=== PATIENT | female | born 1990 | race American Indian/Alaskan Native ===

== ENCOUNTER 2024-02-19 23:51 | Emergency (ER) | payer MEDICARE, MEDICAID ==
[~2024-02-19] VITALS: Ht 177.8 cm; Wt 124.4 kg
[2024-02-20 01:27] VITALS: BP 148/99; PULSE 116; RESP 14; TEMP 98.1; O2SAT 99
== END 2024-02-20 01:32 | disposition home or self-care (01) ==
LOC: ER 23:53
DX: M79.671 Pain in right foot (principal)
CPT/HCPCS: 73630; 99284

== ENCOUNTER 2024-03-27 23:43 | Emergency (ER) | payer MEDICARE, MEDICAID ==
[~2024-03-27] VITALS: Ht 177.8 cm; Wt 121.6 kg
[2024-03-28 00:05] VITALS: BP 134/80; PULSE 110; RESP 18; TEMP 98; O2SAT 100
[2024-03-28 00:22] LABS: URINE HCG NEGATIVE (NEG)
[2024-03-28 00:39] LABS: BILIRUBIN,URINE NEGATIVE (Neg); CLARITY,URINE CLOUDY (Clear); COLOR,URINE YELLOW (Yellow); GLUCOSE, URINE >=1000 mg/dl (Neg); KETONES,URINE TRACE mg/dl (Neg); LEUKOCYTE ESTERASE ,URINE NEGATIVE (Neg); NITRITES, URINE NEGATIVE (Neg); OCCULT BLOOD,URINE NEGATIVE (Neg); PROTEIN,URINE NEGATIVE (Neg); UROBILINOGEN,URINE 0.2 E.U/dL (0.2-1.0)
[2024-03-28 00:40] LABS: UA COLLECTION TYPE CLN CATCH MIDSTREAM
[2024-03-28 00:41] LABS: BACTERIA,URINE 4+ /HPF (Neg); RBC,URINE NONE SEEN /HPF (0-2); SQUAMOUS EPITHELIAL CELL,UR FEW /LPF (FEW); WBC,URINE 20-30 /HPF (0-4)
[2024-03-28 01:21] LABS: BASOPHILS # (AUTO) 0.1 X10'3 (0-0.2); BASOPHILS % (AUTO) 0.5 % (0-1); EOSINOPHILS # (AUTO) 0.1 X10'3 (0-0.9); EOSINOPHILS % (AUTO) 0.6 % (0-6); HEMATOCRIT 36.4 % (35.0-45.0); HEMOGLOBIN 11.9 g/dl (12.0-16.0); LYMPHOCYTES # (AUTO) 5.3 X10'3 (1.1-4.8); LYMPHOCYTES % (AUTO) 29.2 % (21-51); MEAN CORPUSCULAR HEMOGLOBIN 25.3 PG (27.0-31.0); MEAN CORPUSCULAR HGB CONC 32.6 g/dL (33.0-36.5); MEAN CORPUSCULAR VOLUME 77.5 FL (78-98); MEAN PLATELET VOLUME 7.5 FL (7.4-10.4); MONOCYTES # (AUTO) 0.9 X10'3 (0-0.9); MONOCYTES % (AUTO) 5.1 % (2-12); NEUTROPHILS # (AUTO) 11.8 X10'3 (1.8-7.7); NEUTROPHILS % (AUTO) 64.6 % (42-75); PLATELET COUNT 353 X10'3 (140-440); RED CELL DISTRIBUTION WIDTH 15.5 % (11.5-14.5); WHITE BLOOD COUNT 18.2 X10'3 (4.5-11.0)
[2024-03-28 01:36] LABS: ALANINE AMINOTRANSFERASE 23 U/L (12-78); ALBUMIN 3.6 G/DL (3.4-5.0); ALBUMIN/GLOBULIN RATIO 0.8 (1.1-1.5); ALKALINE PHOSPHATASE 114 IU/L (46-116); ANION GAP 6 (8-16); ASPARTATE AMINO TRANSFERASE 12 U/L (10-37); BILIRUBIN,TOTAL 0.2 MG/DL (0.1-1.0); BLOOD UREA NITROGEN 13 MG/DL (7-18); BUN/CREATININE RATIO 15.7 (10.0-20.0); CALCIUM 9.1 MG/DL (8.5-10.1); CHLORIDE 105 MMOL/L (99-107); CREATININE 0.83 MG/DL (0.40-0.90); GLUCOSE 172 MG/DL (70-104); SODIUM 139 MMOL/L (135-145); TOTAL CARBON DIOXIDE 27.8 MMOL/L (24-32); TOTAL PROTEIN 8.1 G/DL (6.4-8.2); eCRCL 102 ML/MIN; eGFR 78 ML/MIN
[2024-03-28] MEDS ORDERED: LEVO-65 PO (01:45)
[2024-03-28] MEDS: levoFLOXACIN 750MG TABLET PO ONE (01:49)
[2024-03-28] MEDS: CefTRIAXone 1000mg IM Kit (w/lidocaine diluent) IM ONE (01:49)
== END 2024-03-28 02:11 | disposition home or self-care (01) ==
LOC: ER 23:45
DX: N10 Acute pyelonephritis (principal)
CPT/HCPCS: 36415; 80053; 81001; 81025; 82948; 85025; 87088; 96372; 99283; J0696

== ENCOUNTER 2024-05-05 23:45 | Emergency (ER) | payer MEDICARE, MEDICAID ==
[~2024-05-05] VITALS: Ht 177.8 cm; Wt 92.2 kg
[2024-05-06 01:48] LABS: D-DIMER 0.45 MG/L FEU (0-0.50)
[2024-05-06] MEDS: dexamethasone sod phosphate 10mg/ml inj PO STA (02:12)
[2024-05-06 02:15] LABS: BASOPHILS # (AUTO) 0.1 X10'3 (0-0.2); BASOPHILS % (AUTO) 0.6 % (0-1); EOSINOPHILS # (AUTO) 0.2 X10'3 (0-0.9); HEMATOCRIT 37.2 % (35.0-45.0); HEMOGLOBIN 12.2 g/dl (12.0-16.0); LYMPHOCYTES # (AUTO) 2.8 X10'3 (1.1-4.8); LYMPHOCYTES % (AUTO) 34.5 % (21-51); MEAN CORPUSCULAR HEMOGLOBIN 25.5 PG (27.0-31.0); MEAN CORPUSCULAR HGB CONC 32.9 g/dL (33.0-36.5); MEAN CORPUSCULAR VOLUME 77.7 FL (78-98); MEAN PLATELET VOLUME 7.8 FL (7.4-10.4); MONOCYTES # (AUTO) 0.7 X10'3 (0-0.9); MONOCYTES % (AUTO) 8.2 % (2-12); NEUTROPHILS # (AUTO) 4.5 X10'3 (1.8-7.7); NEUTROPHILS % (AUTO) 54.7 % (42-75); PLATELET COUNT 300 X10'3 (140-440); RED BLOOD COUNT 4.79 X10'6 (4.20-5.60); RED CELL DISTRIBUTION WIDTH 16.5 % (11.5-14.5); WHITE BLOOD COUNT 8.2 X10'3 (4.5-11.0)
[2024-05-06] MEDS ORDERED: AZIT-164 PO (02:52)
[2024-05-06] MEDS ORDERED: ALBU18HF2 INH (02:52)
[2024-05-06] MEDS ORDERED: PRED20TA PO (02:52)
[2024-05-06 03:00] LABS: ALBUMIN 3.7 G/DL (3.4-5.0); ANION GAP 10 (8-16); BLOOD UREA NITROGEN 9 MG/DL (7-18); BUN/CREATININE RATIO 12.9 (10.0-20.0); CHLORIDE 105 MMOL/L (99-107); GLUCOSE 129 MG/DL (70-104); POTASSIUM 4.1 MMOL/L (3.5-5.1); SODIUM 140 MMOL/L (135-145); TOTAL CARBON DIOXIDE 25.4 MMOL/L (24-32); eCRCL 121 ML/MIN; eGFR > 90 ML/MIN
[2024-05-06 03:07] VITALS: BP 158/92; PULSE 111; RESP 18; TEMP 99; O2SAT 96
== END 2024-05-06 03:09 | disposition home or self-care (01) ==
LOC: ER 23:45
DX: J20.9 Acute bronchitis, unspecified (principal); E11.9 Type 2 diabetes mellitus without complications; Z79.4 Long term (current) use of insulin; Z79.899 Other long term (current) drug therapy; Z20.822 Contact with and (suspected) exposure to COVID-19
CPT/HCPCS: 36415; 71046; 80048; 85025; 85379; 87502; 87503; 87811; 93005; 99285; J1100